=== PATIENT | female | born 1990 | race Caucasian/White ===

== ENCOUNTER 2016-03-08 17:10 | Emergency (ER) | payer MEDICAID ==
[2016-03-08 17:24] VITALS: TEMP 98.4; BMI 37.2
[2016-03-08] MEDS ORDERED: LORAZEPAM 2 MG/ML VIAL IV ONE (18:18)
[2016-03-08] MEDS ORDERED: LEVETIRACETAM 100 MG/ML ORAL SOLN PO ONE (18:18)
--- NOTE | 2016-03-08 18:21 | EDPRACDOC ---
ED Seizure HPI - General Information Chief Complaint: Seizure Stated Complaint: SEIZURE Time Seen by Provider: 03/08/16 18:12 Information Source: Patient, [employer] Mode Of Arrival: Car Home Medications: Home Medications Acetaminophen with Codeine [Acetaminop-Codeine 120-12 mg/5] 12.5 ml PO Q4-6H PRN 03/08/16 Amoxicillin Trihydrate [Amoxicillin] 6.25 mg PO .Q6H X 10D 03/08/16 Levetiracetam [Keppra] 10 ml PO BID 30 Days 03/08/16 Levothyroxine [Synthroid, Levoxyl] 25 mcg PO DAILY 03/08/16 Allergies/Adverse Reactions: Allergies Allergy/AdvReac Type Severity Reaction Status Date / Time No Known Allergies Allergy Verified 03/08/16 17:39 - History of Present Illness Onset: tug boat captain HPI: Pt states she was in a store and had 2 seizures. Pt states she felt it coming on. Family witness event, pt eye rolled back, pt tensed and fell to ground, LOC. Pt denies injury, loss of control bowel or bladder. Hx seizure and missed a couple doses of Keppra. Seizure Duration: 1-2 mins Witnessed: YES Postictal: Yes Episodes: Reports: multiple episodes today Compliant with Seizure Medication: No Seizure Type: Reports: Shaking Seizure Trigger: Reports: Unknown Prior to Seizure: Reports: Normal During Seizure: Reports: Deviation of Eyes, Skin Color Changes, Loss of Consciousness Immediately After Seizure: Reports: Confusion Associated Signs & Symptoms: Reports: None - [place] Coma scale Coma Scale Eye Opening: Spontaneous Coma Scale Motor: Obeys Commands Coma Scale Verbal: Oriented Coma Scale Total: 15 ED Past Medical History - History Reviewed Yes Nurses notes reviewed and agree except as marked - Patient Medical History Psychological History: Denies: Depression Systemic History: Reports: Hypothyroidism. Denies: Cancer Surgical History: Denies: Hysterectomy - Social Medical History Smoking Status: Never smoker ETOH: None Substance Abuse: None EDM Review of Systems - Review of Systems Constitutional: No Symptoms Reported. negative: Fever, Chills, Weakness, Fatigue, Loss of Appetite Eyes: No Symptoms Reported. negative: Redness, Blurred Vision, Double Vision, Discharge, Pain, Light Sensitive, Photophobia Ears: No Symptoms Reported. negative: Pain, Hearing Loss, Drainage, Ear Pulling Throat: No Symptoms Reported. negative: Pain, Swelling Nose: No Symptoms Reported. negative: Congestion, Bleeding, Discharge, Injection, Swelling, Deformity, Ecchymosis, Tender, Abrasion, Laceration Mouth: No Symptoms Reported. negative: Pain, Drooling Respiratory: No Symptoms Reported. negative: Cough, Brassy Cough, Barky Cough, Shortness of Breath, Wheezing, Hemoptysis Cardiovascular: No Symptoms Reported. negative: Chest Pain, Palpitations, Syncope, Edema, Orthopnea, PND, Skin Mottling, Cyanosis Gastrointestinal: No Symptoms Reported. negative: Pain, Constipation, Nausea, Vomiting, Diarrhea, Melena, Formula Intolerance Genitourinary: No Symptoms Reported. negative: Dysuria, Hematuria, Frequency, Discharge, Bleeding, Testicular Pain, Neurological: Seizure Musculoskeletal: No Symptoms Reported. negative: Neck, Chestwall, Ribs, Back, Shoulder, Arm, Elbow, Forearm, Wrist, Hand, Pelvis, Hip, Femur, Knee, Leg, Ankle , Foot Integumentary: No Symptoms Reported. negative: Itching, Rash, Bruising, Wound Allergic/Immunologic: No Symptoms Reported. negative: Hives, Itching Hematologic: No Symptoms Reported. negative: Lymphadenopathy, Easy Bruising, Easy Bleeding Psychiatric: No Symptoms Reported. negative: Anxiety, Depression, Hallucinations, Insomnia, Suicidal - Physical Exam Constitutional: Alert (Awake), No apparent distress Oriented to: Time, Person, Place Last recorded Vital Signs: Last Vital Signs Temp 98.4 F 03/08/16 17:18 Pulse 78 03/08/16 17:18 Resp 20 03/08/16 17:18 BP 122/86 03/08/16 17:18 Pulse Ox 98 03/08/16 17:18 Oxygen Pulse Oxygen Saturation 98 O2 Device Room Air Oxygen Flow Rate Fraction of Inspired Oxygen ( FIO2) - HEENT Head: Normal ( normocephalic) Eye Exam: Normal (PERRL, EOMI, Sclera white) Oropharynx: Normal (Pharynx:Moist without exudate,Gums-no swelling) Tympanic Membrane: Normal ENT EAC: Normal TMJ: Normal Nose: No Symptoms Reported (septum midline) Neck: Normal (FROM, trachea at midline) - Respiratory/Cardiovascular Respiratory: Normal - CTA (BBS clear to auscultation without adventitious sounds ) Cardiovascular: Normal (RRR without murmur, gallop or rub) - GI Auscultation: Normal (NABS) Palpation: Normal (Soft,No rebound or guarding, non distended) Tenderness: Non tender - Musculoskeletal Back: Normal (Non-Tender) Extremities: Normal (Normal tone, Pulses 2+ No cyanosis or edema, FROM) - Integumentary Skin: Normal, Warm, Dry Lymphatics: Normal (no adenopathy) - Neurologic Memory Impaired: Normal Motor Function: Normal (Normal tone, Pulses 2+ No cyanosis or edema, FROM) Mood Description: Normal Perception: Normal - Differential Diagnosis Anticonvulsant Withdrawal, Idiopathic, Seizure - Results 03/08/16 17:25 - EKG EKG #1 EKG Time: 18:29 Rate: bpm: 83 [place]: Normal Rhythm: NSR Block: None ST: Normal Decision Time to Discharge: 18:58 - Departure Disposition: Home Condition: Good Final Diagnosis: Seizure, Noncompliance with medication regimen Instructions: Seizures Education/Counseling Given To: Patient, Family Member Education/Counseling Given Regarding: Diagnosis, Treatment, Follow Up Referrals: None,No Provider [Primary Care Provider] - One Week Leland Calderón MD [Staff Physician] - One Week Prescriptions: Levetiracetam [Keppra] 10 ml PO BID 30 Days Additional Instructions: Follow up with Personal Neurologist. Take medication as directed.
[2016-03-08 18:54] LABS: BLOOD UREA NITROGEN 13 MG/DL (7-17); CALCIUM 9.9 MG/DL (8.4-10.2); CALCULATED OSMOLALITY 272 MOs/Kg (270-290); CHLORIDE 104 mEq/L (98-107); GLUCOSE 119 MG/DL (70-99); SODIUM LEVEL 141 mEq/L (137-146)
[2016-03-08 19:18] VITALS: BP 135/66; PULSE 84
== END 2016-03-08 19:18 | disposition home or self-care (01) ==
LOC: ED 17:10
DX: R56.9 Unspecified convulsions (principal); Z91.14 Patient's other noncompliance with medication regimen
CPT/HCPCS: 36415; 80048; 93005; 96374; 99284; J2060; J3490